=== PATIENT | male | born 1950 | race Caucasian/White ===

== ENCOUNTER 2021-11-15 12:20 | Emergency (ER) | payer MEDICARE, OTHER ==
[~2021-11-15] VITALS: Ht 170.2 cm; Wt 93.4 kg
[~2021-11-15 12:20] MED LIST: ASPI-605 PO; ATOR40TA PO; CARV3.12 PO; LOSA25TA27 PO; TICA90TA PO
--- NOTE | 2021-11-15 12:34 | NUR ---
BIBWIFE S/P FALL C/O LT WRIST PAIN. -KO. DENIES ANY OTHER DISCOMFORT. VSS. PT SEEN & EVAL'D BY DR. PINZON. WILL CONT TO MONITOR.
[2021-11-15] MEDS ORDERED: KETOROLAC TROMETHAMINE INJ 30 MG/ML VIAL IM ONE (13:00)
[2021-11-15] MEDS ORDERED: KETOROLAC TROMETHAMINE INJ 30 MG/ML VIAL ONE (13:03)
--- NOTE | 2021-11-15 13:08 | NUR ---
MEDICATED PER ERMD ORDER, PT GHULAM WELL.
[2021-11-15] MEDS ORDERED: PROPOFOL 200 MG/20 ML VIAL IV ONE (14:00)
--- NOTE | 2021-11-15 14:00 | NUR ---
PT SIGNED CONSENT FOR PROCEDURAL SEDATION.
[2021-11-15] MEDS ORDERED: PROPOFOL 20 ML IV ONE (14:04)
--- NOTE | 2021-11-15 14:27 | NUR ---
MEDICATED WITH 100MG OF DIPRIVAN IVP. DR. PINZON AT BS.
--- NOTE | 2021-11-15 14:38 | NUR ---
PT AAOX4, VSS. RR EVEN & UNLABORED. DENIES CP, SOB, DIZZINESS, N/V AT THIS TIME. PT ON LT ARM SUGAR TONG SPLINT & ON SLING, PT GHULAM WELL. WILL CONT TO MONITOR.
[2021-11-15] MEDS ORDERED: HYDR-4209 PO (15:29)
[2021-11-15] MEDS ORDERED: IBUP-1957 PO (15:29)
--- NOTE | 2021-11-15 15:40 | NUR ---
Patient discharged to home in stable condition. Written and verbal after care instructions given. Patient verbalizes understanding of instruction. IV removed. Catheter intact and site benign. Pressure and 4x4 applied to site. No bleeding noted.
[2021-11-15 15:42] VITALS: BP 132/86
== END 2021-11-15 15:51 | disposition home or self-care (01) ==
LOC: ER 12:33
DX: S52.512A Displaced fracture of left radial styloid process, initial encounter for closed fracture (principal); I10 Essential (primary) hypertension; I25.2 Old myocardial infarction; Z79.899 Other long term (current) drug therapy; W18.30XA Fall on same level, unspecified, initial encounter; Y93.89 Activity, other specified; Y92.89 Other specified places as the place of occurrence of the external cause; Y99.8 Other external cause status
CPT/HCPCS: 25605; 99285; 99152; 73130; 73110 ×2; 96372; J2704; J1885; G0500